=== PATIENT | female | born 1955 | race American Indian/Alaskan Native ===

== ENCOUNTER 2018-12-05 16:28 | Emergency (ER) | payer OTHER ==
[2018-12-05] MEDS ORDERED: DELTASONE PO ONE (19:01)
[2018-12-05] MEDS ORDERED: NORCO 5/325 PO ONE (19:01)
--- NOTE | 2018-12-05 19:07 | Emergency Department Report ---
ED General Adult HPI - General Chief complaint: Pain General Stated complaint: ARTRITIS FLARE UP Time Seen by Provider: 12/05/18 19:00 Source: patient Mode of arrival: Ambulatory Limitations: No Limitations - History of Present Illness Initial comments: pt is a 63 y/o aam with hx of arthritis left hip and back presents for acute flare of giselle x 1 week advises that he is out of medications and cannot see pcp for another in 2-3 wheeks. there is no fever no chills , no fall injury no truama plan nsaids, muscle relaxant, analgesic balm. follow up with pcp in 2-3 days. Onset/Timin -: days(s) Location: back, lower extremity Radiation: non-radiation Severity scale (0 -10): 3 Quality: aching Consistency: intermittent Improves with: none Worsens with: none Associated Symptoms: denies: headaches, rash, syncope, weakness - Related Data Previous Rx's Medication Instructions Recorded Last Taken Type Diclofenac Dr (Nf) 50 mg PO TID #30 tab 12/05/18 Unknown Rx predniSONE [Deltasone] 40 mg PO 10 #2 tablet 12/05/18 Unknown Rx Allergies Allergy/AdvReac Type Severity Reaction Status Date / Time codeine Allergy Unknown Verified 12/05/18 16:31 ED Review of Systems ROS: Stated complaint: ARTRITIS FLARE UP Other details as noted in HPI Constitutional: denies: chills, fever Eyes: denies: eye pain, eye discharge, vision change ENT: denies: ear pain, throat pain Respiratory: denies: cough, shortness of breath, wheezing Cardiovascular: denies: chest pain, palpitations Endocrine: no symptoms reported Gastrointestinal: denies: abdominal pain, nausea, diarrhea Genitourinary: denies: urgency, dysuria, discharge Musculoskeletal: back pain, arthralgia, myalgia Skin: denies: rash, lesions Neurological: denies: headache, weakness, paresthesias Psychiatric: denies: anxiety, depression Hematological/Lymphatic: denies: easy bleeding, easy bruising ED Past Medical Hx - Past Medical History Previous Medical History?: Yes Hx Arthritis: Yes - Surgical History Past Surgical History?: Yes Additional Surgical History: ACL repair - Social History Smoking Status: Unknown if ever smoked Substance Use Type: None - Medications Home Medications: Home Medications Medication Instructions Recorded Confirmed Last Taken Type Diclofenac Dr (Nf) 50 mg PO TID #30 tab 12/05/18 Unknown Rx predniSONE [Deltasone] 40 mg PO 10 #2 tablet 12/05/18 Unknown Rx ED Physical Exam - General Limitations: No Limitations General appearance: alert, in no apparent distress - Head Head exam: Present: atraumatic, normocephalic - Eye Eye exam: Present: normal appearance, PERRL, EOMI, scleral icterus, conjunctival injection. Absent: nystagmus, periorbital swelling, periorbital tenderness Pupils: Present: normal accommodation. Absent: unequal - ENT ENT exam: Present: normal exam, normal orophraynx, mucous membranes moist, TM's normal bilaterally, normal external ear exam - Neck Neck exam: Present: normal inspection, full ROM. Absent: tenderness, meningismus, lymphadenopathy, thyromegaly - Expanded Neck Exam Expanded Neck exam: Present: tenderness (posterior vertebral point tenderness ), thyroid mass. Absent: midline deformity, anterior neck swelling, carotid bruit, tracheal deviation ED Course Vital Signs 12/05/18 17:14 Temperature 97.8 F Pulse Rate 65 Respiratory 16 Rate O2 Sat by Pulse 99 Oximetry Critical care attestation.: If time is entered above; I have spent that time in minutes in the direct care of this critically ill patient, excluding procedure time. ED Disposition Clinical Impression: Arthralgia Qualifiers: Joint pain location: hip Laterality: left Qualified Code(s): M25.552 - Pain in left hip Disposition: - TO HOME OR SELFCARE Is pt being admited?: No Does the pt Need Aspirin: No Condition: Stable Instructions: Osteoarthritis (ED) Prescriptions: predniSONE [Deltasone] 40 mg PO 10 #[address] (Nf) 50 mg PO TID #30 tab Referrals: LAM BURNHAM MD [Staff Physician] - 3-5 Days Forms: Work/School Release Form(ED) Time of Disposition: 19:25
--- NOTE | 2018-12-05 19:32 | Emergency Department Report ---
HPI - General Chief Complaint: Pain General Time Seen by Provider: 12/05/18 19:00 - HPI HPI: pt presents for left hip pain aching x 4 days hx of arthralgia there is no fever no chills no fall s no ED Past Medical Hx - Past Medical History Previous Medical History?: Yes Hx Arthritis: Yes - Surgical History Past Surgical History?: Yes Additional Surgical History: ACL repair - Social History Smoking Status: Unknown if ever smoked Substance Use Type: None - Medications Home Medications: Home Medications Medication Instructions Recorded Confirmed Last Taken Type Diclofenac Dr (Nf) 50 mg PO TID #30 tab 12/05/18 Unknown Rx predniSONE [Deltasone] 40 mg PO 10 #2 tablet 12/05/18 Unknown Rx ED Review of Systems ROS: Stated complaint: ARTRITIS FLARE UP Other details as noted in HPI Constitutional: denies: chills, fever Eyes: denies: eye pain, eye discharge, vision change ENT: denies: ear pain, throat pain Respiratory: denies: cough, shortness of breath, wheezing Cardiovascular: denies: chest pain, palpitations Endocrine: no symptoms reported Gastrointestinal: denies: abdominal pain, nausea, diarrhea Genitourinary: denies: urgency, dysuria, discharge Musculoskeletal: back pain, arthralgia, myalgia Skin: denies: rash, lesions Neurological: denies: headache, weakness, paresthesias Psychiatric: denies: anxiety, depression Hematological/Lymphatic: denies: easy bleeding, easy bruising Physical Exam - Physical Exam Vital Signs: Vital Signs 12/05/18 17:14 Temperature 97.8 F Pulse Rate 65 Respiratory 16 Rate O2 Sat by Pulse 99 Oximetry General: pt appears well nad, nontoxic, no fever no chills no injury, no swelling no erythema no deformity , pt is ambulatory with issa with steady gait. ED Course Vital Signs 12/05/18 17:14 Temperature 97.8 F Pulse Rate 65 Respiratory 16 Rate O2 Sat by Pulse 99 Oximetry ED Medical Decision Making - Medical Decision Making this is acute on chronic arthralgia, will rx for nsaids steroids, analgesica balm , moist heat therapy return to ed if symptoms worsen. Critical care attestation.: If time is entered above; I have spent that time in minutes in the direct care of this critically ill patient, excluding procedure time. ED Disposition Clinical Impression: Arthralgia Qualifiers: Joint pain location: hip Laterality: left Qualified Code(s): M25.552 - Pain in left hip Disposition: TO HOME OR SELFCARE Is pt being admited?: No Does the pt Need Aspirin: No Condition: Stable Instructions: Osteoarthritis (ED) Prescriptions: predniSONE [Deltasone] 40 mg PO 10 #[address] (Nf) 50 mg PO TID #30 tab Referrals: LAM BURNHAM MD [Staff Physician] - 3-5 Days Forms: Work/School Release Form(ED) Time of Disposition: 19:32
== END 2018-12-05 19:41 | disposition home or self-care (01) ==
LOC: ED 16:28
DX: M25.552 Pain in left hip (principal); M19.90 Unspecified osteoarthritis, unspecified site; Z79.899 Other long term (current) drug therapy; Z98.890 Other specified postprocedural states; Z88.6 Allergy status to analgesic agent
CPT/HCPCS: 99282; J7512